=== PATIENT | male | born 1985 | race American Indian/Alaskan Native ===

== ENCOUNTER 2017-06-22 18:07 | Emergency (ER) | payer OTHER ==
[~2017-06-22] VITALS: Ht 170.2 cm; Wt 81.7 kg
[~2017-06-22 18:07] MED LIST: ALBU90OI INH; AZIT500 PO; Abilify2 MG; BENZ100A PO; CLON.1 PO; ERYT1OIN BOTHEYES; ESCI20; ESCI5; GABA100 PO; HYDACE25S PR; Keflex500 MG PO; PRAZ1; PROC10 PO; PROCODE120 PO; Permethrin60 GM TOP; Prednisone20 MG PO; SPACE CHAMBER1 EACH MC; TRAZ100; Ultram50 MG PO
[2017-06-22 20:01] LABS: Influenza A Positive (NEGATIVE); Influenza B Negative (NEGATIVE)
[2017-06-22] MEDS ORDERED: Tamiflu75 MG PO (20:52)
[2017-06-22] MEDS ORDERED: Sudogest60 MG PO (20:52)
== END 2017-06-22 20:58 | disposition home or self-care (01) ==
LOC: ER 18:07
PROVIDERS: Physician Assistant
DX: J10.1 Influenza due to other identified influenza virus with other respiratory manifestations (principal); J45.909 Unspecified asthma, uncomplicated; F17.210 Nicotine dependence, cigarettes, uncomplicated; Z88.0 Allergy status to penicillin
CPT/HCPCS: 87804; 99283

== ENCOUNTER 2017-12-06 23:51 | Emergency (ER) | payer OTHER ==
[~2017-12-06] VITALS: Ht 170.2 cm; Wt 86.2 kg
[~2017-12-06 23:51] MED LIST changes: +Sudogest60 MG PO; +Tamiflu75 MG PO
[2017-12-07] MEDS ORDERED: ARIPIPRAZOLE5 MG PO (00:02)
[2017-12-07] MEDS ORDERED: ESCI20 PO (00:02)
[2017-12-07] MEDS ORDERED: GABA100 PO (00:02)
== END 2017-12-07 01:25 | disposition home or self-care (01) ==
LOC: ER 23:51
DX: S01.81XA Laceration without foreign body of other part of head, initial encounter (principal); S60.011A Contusion of right thumb without damage to nail, initial encounter; W18.09XA Striking against other object with subsequent fall, initial encounter; Z88.0 Allergy status to penicillin; Z79.899 Other long term (current) drug therapy; J45.909 Unspecified asthma, uncomplicated; F32.9 Major depressive disorder, single episode, unspecified; F17.210 Nicotine dependence, cigarettes, uncomplicated
CPT/HCPCS: 12011; 73120; 99283

== ENCOUNTER 2018-01-23 20:51 | Emergency (ER) | payer MEDICAID ==
[~2018-01-23] VITALS: Ht 170.2 cm; Wt 81.7 kg
[~2018-01-23 20:51] MED LIST changes: +ARIPIPRAZOLE5 MG PO; +ESCI20 PO
[2018-01-23 21:43] LABS: BASOPHILS ABSOLUTE AUTO 0.03 K/mm3 (0.00-0.23); BASOPHILS PERCENT AUTO 0 % (0-2); EOSINOPHILS ABSOLUTE AUTO 0.05 K/mm3 (0.00-0.68); EOSINOPHILS PERCENT AUTO 1 % (0-6); Hematocrit 45.9 % (37.0-53.0); Hemoglobin 15.9 g/dL (13.5-17.5); IMMATURE GRAN ABSOLUTE AUTO 0.01 K/mm3 (0.00-0.10); IMMATURE GRAN PERCENT AUTO 0 % (0-1); LYMPHOCYTES ABSOLUTE AUTO 2.05 K/mm3 (0.84-5.20); LYMPHOCYTES PERCENT AUTO 30 % (21-46); MONOCYTES ABSOLUTE AUTO 0.62 K/mm3 (0.16-1.47); MONOCYTES PERCENT AUTO 9 % (4-13); Mean Corpuscular HGB 32.9 pg (26.0-34.0); Mean Corpuscular HGB Conc 34.6 g/dL (31.5-36.5); Mean Corpuscular Volume 95 fL (80-100); Mean Platelet Volume 8.6 fL (9.1-12.4); NEUTROPHILS ABSOLUTE AUTO 4.04 K/mm3 (1.96-9.15); NEUTROPHILS PERCENT AUTO 60 % (41-73); Platelet Count 289 K/mm3 (150-400); RDW Coefficient Variation 13.2 % (11.7-14.2); RDW Standard Deviation 46.4 fL (35.1-46.3); Red Blood Cell Count 4.84 M/mm3 (4.30-5.90)
[2018-01-23 22:09] LABS: Alanine Aminotransfer (ALT/SGP 28 U/L (12-78); Albumin, Blood 3.6 g/dL (3.4-5.0); Alk Phos 107 U/L (50-136); Anion Gap 12 mmol/L (6-16); Aspartate Aminotrans (AST/SGOT 18 U/L (12-37); Bilirubin, Total 0.2 mg/dL (0.1-1.0); Blood Urea Nitrogen 15 mg/dL (8-24); Bun/Creatinine Ratio 18.9 (12.0-20.0); CO2, Blood 22 mmol/L (21-32); Calcium, Blood 8.7 mg/dL (8.5-10.1); Chloride, Blood 105 mmol/L (98-108); Globulin, Blood 3.7 g/dL (2.2-4.0); Glomerular Filtration Rate >60 (60-); Glucose, Blood 90 mg/dL (70-99); Potassium, Blood 3.9 mmol/L (3.5-5.5); Sodium, Blood 139 mmol/L (136-145); Total Protein, Blood 7.3 g/dL (6.4-8.2)
[2018-01-24] MEDS ORDERED: Prilosec Otc20 MG PO (01:28)
[2018-01-24] MEDS ORDERED: Carafate1 GM/10 ML PO (01:28)
== END 2018-01-24 01:35 | disposition home or self-care (01) ==
LOC: ER 20:51
PROVIDERS: Emergency Medicine
DX: R10.13 Epigastric pain (principal); R11.2 Nausea with vomiting, unspecified; F32.9 Major depressive disorder, single episode, unspecified; F17.210 Nicotine dependence, cigarettes, uncomplicated; Z88.0 Allergy status to penicillin; Z79.899 Other long term (current) drug therapy
CPT/HCPCS: 36415; 76705; 80053; 83690; 85025; 96361; 96374; 99284-25; J2405; J7030